=== PATIENT | male | born 1930 | race Caucasian/White ===

== ENCOUNTER → 2018-03-28 | Outpatient (CLI) | payer OTHER ==
[~2018-03-28] MED LIST: ALTACE10 MG PO; AZITHROMYCIN 2250 MG PO; CEFUROXIME500 MG PO; ETODOLAC 400 M400 M1 PO; LANOXIN 0.120.125 M1 PO; LASIX 40 MG TAB40 M2 PO; METFORMIN HCL500 MG PO; MUCINEX TA600 MG/TA2 PO; NORVASC5 MG PO; PROSCAR 5MG TABL5 MG PO; VENTOLIN HFA 1818 GM INH; VITAMIN D 5050000 I1 PO; XARELTO20 MG PO
== END ==
LOC: M.RAD 12:00 → M.MRI 13:30
DX: M47.896 Other spondylosis, lumbar region (principal); R06.02 Shortness of breath; R29.898 Other symptoms and signs involving the musculoskeletal system